=== PATIENT | male | born 1995 | race Hispanic/Latino ===

== ENCOUNTER 2018-11-19 19:03 | Emergency (ER) | payer OTHER, SELFPAY ==
[2018-11-19] MEDS ORDERED: METHYLPREDNISOLONE 125 MG INJ ONE (20:27)
[2018-11-19] MEDS ORDERED: ALBUTEROL 2.5 MG/3 ML NEB SOL ONE (20:27)
[2018-11-19] MEDS ORDERED: NA CHLORIDE 0.9% 1,000 ML ONE (20:27)
[2018-11-19 20:43] LABS: Absolute Lymphocytes (CBC) 1.9 K/uL (0.7-4.9); Absolute Monocytes 1.6 K/uL (0.1-1.3); Absolute Neutrophil 9.9 K/uL (1.8-8.0); Basophils % 0.4 % (0-1.3); Eosinophils % 2.8 % (0-4.4); Hematocrit 47.5 % (39.6-49.0); Lymphocytes % 13.5 % (15.3-44.8); MPV 8.6 fL (7.6-11.3); Monocytes % 11.4 % (3.3-12.3); RBC Red Blood Cell Count 5.36 M/uL (4.33-5.43)
[2018-11-19 20:59] LABS: Potassium 3.7 mmol/L (3.5-5.1)
--- NOTE | 2018-11-19 21:01 | RAD REPORT ---
EXAM DESCRIPTION: Kiki Single View11/19/2018 8:34 pm CLINICAL HISTORY: Cough COMPARISON: 2013 FINDINGS: The lungs appear clear of acute infiltrate. The heart is normal size IMPRESSION: No acute abnormalities displayed
--- NOTE | 2018-11-19 21:45 | EDPHYS ---
Physician Documentation [facility] Name: Andry Travis Jr Age: 23 yrs Sex: Male : 1995 Arrival Date: 11/19/2018 Time: 19:05 Bed 2 Private MD: None, None ED Physician Arnaldo Lemus HPI: 11/19 20:16 This 23 yrs old Male presents to ER via Ambulatory with complaints of Flu jr8 Symptoms. 20:16 Patient stated that for the past couple of days has had runny nose, sore throat, cough, jr8 wheezing, and body aches. Has been sweating a lot as well. Does not have inhaler at home and has history of asthma. Feels that his breathing is getting worse . Severity of symptoms: At their worst the symptoms were moderate in the emergency department the symptoms are unchanged. The patient has experienced similar episodes in the past, a few times. The patient has not recently seen a physician. Historical: - Allergies: 19:31 No Known Allergies; aj1 - Home Meds: 19:31 None [Active]; aj1 - PMHx: 19:31 Asthma; aj1 - Immunization history:: Flu vaccine is not up to date. - Social history:: Smoking status: Patient uses tobacco products, denies chronic smoking, but will smoke occasionally. - Ebola Screening: : Patient denies travel to an Ebola-affected area in the 21 days before illness onset. ROS: 20:16 Eyes: Negative for injury, pain, redness, and discharge, Neck: Negative for injury, jr8 pain, and swelling, Cardiovascular: Negative for chest pain, palpitations, and edema, Abdomen/GI: Negative for abdominal pain, nausea, vomiting, diarrhea, and constipation, Back: Negative for injury and pain, MS/Extremity: Negative for injury and deformity, Skin: Negative for injury, rash, and discoloration, Neuro: Negative for headache, weakness, numbness, tingling, and seizure. 20:16 Constitutional: Positive for body aches, chills. 20:16 ENT: Positive for rhinorrhea, sinus congestion, sore throat. 20:16 Respiratory: Positive for cough, shortness of breath, wheezing. Exam: 20:16 Eyes: Pupils equal round and reactive to light, extra-ocular motions intact. Lids and jr8 lashes normal. Conjunctiva and sclera are non-icteric and not injected. Cornea within normal limits. Periorbital areas with no swelling, redness, or edema. ENT: Nares patent. No nasal discharge, no septal abnormalities noted. Tympanic membranes are normal and external auditory canals are clear. Oropharynx with no redness, swelling, or masses, exudates, or evidence of obstruction, uvula midline. Mucous membranes moist. Neck: Trachea midline, no thyromegaly or masses palpated, and no cervical lymphadenopathy. Supple, full range of motion without nuchal rigidity, or vertebral point tenderness. No Meningismus. Cardiovascular: Regular rate and rhythm with a normal S1 and S2. No gallops, murmurs, or rubs. Normal PMI, no JVD. No pulse deficits. Abdomen/GI: Soft, non-tender, with normal bowel sounds. No distension or tympany. No guarding or rebound. No evidence of tenderness throughout. Back: No spinal tenderness. No costovertebral tenderness. Full range of motion. Skin: Warm, dry with normal turgor. Normal color with no rashes, no lesions, and no evidence of cellulitis. MS/ Extremity: Pulses equal, no cyanosis. Neurovascular intact. Full, normal range of motion. Neuro: Awake and alert, GCS 15, oriented to person, place, time, and situation. Cranial nerves II-XII grossly intact. Motor strength 5/5 in all extremities. Sensory grossly intact. Cerebellar exam normal. Normal gait. 20:16 Respiratory: the patient does not display signs of respiratory distress, Respirations: tachypnea, that is mild, Breath sounds: wheezing: expiratory that is moderate, is heard diffusely. Vital Signs: 19:31 BP 138 / 79; Pulse 128; Resp 24; Temp 99.1; Pulse Ox 93% on R/A; Height 5 ft. 5 in. aj1 (165.10 cm) (R); Pain 8/10; 21:02 BP 129 / 93; Pulse 118; Resp 20; Pulse Ox 100% on Nebulizer Mask; aa1 MDM: 19:33 Patient medically screened. jr8 21:43 Data reviewed: vital signs, nurses notes, lab test result(s), EKG, radiologic studies, jr8 plain films. Data interpreted: Pulse oximetry: on room air is 100 %. Interpretation: normal. Counseling: I had a detailed discussion with the patient and/or guardian regarding: the historical points, exam findings, and any diagnostic results supporting the discharge/admit diagnosis, lab results, radiology results, the need for outpatient follow up, a family practitioner, to return to the emergency department if symptoms worsen or persist or if there are any questions or concerns that arise at home. Response to treatment: the patient's symptoms have markedly improved after treatment, patient is well hydrated. 11/19 20:04 Order name: CBC with Diff; Complete Time: 21:04 11/19 20:04 Order name: Basic Metabolic Panel; Complete Time: 21:00 11/19 20:04 Order name: XRAY Chest (1 view); Complete Time: 21:02 11/19 20:04 Order name: Influenza Screen (a \T\ B); Complete Time: 20:57 11/19 20:04 Order name: EKG; Complete Time: 20:04 11/19 20:04 Order name: EKG - Nurse/Tech; Complete Time: 20:13 Administered Medications: 20:20 Drug: Albuterol 2.5 mg Route: Inhalation; ca1 20:34 Drug: NS 0.9% 1000 ml Route: IV; Rate: 1000 ml; Site: right antecubital; ca1 21:59 Follow up: Response: No adverse reaction; IV Status: Completed infusion ca1 20:35 Drug: SOLU-Medrol 125 mg Route: IVP; Site: right antecubital; ca1 21:59 Follow up: Response: No adverse reaction ca1 20:40 Drug: Albuterol 2.5 mg Route: Inhalation; ca1 21:02 Drug: Albuterol 2.5 mg Route: Inhalation; aa1 21:59 Follow up: Response: No adverse reaction ca1 Disposition: 22:23 Co-signature as Attending Physician, Arnaldo Lemus MD. pkl Disposition: 11/19/18 21:44 Discharged to Home. Impression: Viral infection, unspecified, Mild intermittent asthma with (acute) exacerbation. - Condition is Stable. - Discharge Instructions: Asthma, Adult, Viral Respiratory Infection. - Prescriptions for Prednisone 20 mg Oral Tablet - take 1 tablet by ORAL route once daily for 5 days; 5 tablet. Albuterol Sulfate 90 mcg/actuation - inhale 1-2 puff by INHALATION route every 4-6 hours; 1 Inhaler. Guaifenesin AC 10- 100 mg/5 mL Oral Liquid - take 10 milliliter by ORAL route every 4 hours As needed; 240 milliliter. - Medication Reconciliation Form, Thank You Letter, Antibiotic Education, Prescription Opioid Use form. - Follow up: Private Physician; When: 2 - 3 days; Reason: Recheck today's complaints, Continuance of care, Re-evaluation by your physician. - Problem is new. - Symptoms have improved. Signatures: Dispatcher [employer] EDFrancesca Lim RN RN aj1 Mine Daily RN RN aa1 Arnaldo Lemus MD MD pkl Too Epperson PA PA jr8 Cathie, Claudia RN RN ca1 Corrections: (The following items were deleted from the chart) 22:00 21:44 11/19/2018 21:44 Discharged to Home. Impression: Viral infection, unspecified; ca1 Mild intermittent asthma with (acute) exacerbation. Condition is Stable. Forms are Medication Reconciliation Form, Thank You Letter, Antibiotic Education, Prescription Opioid Use. Follow up: Private Physician; When: 2 - 3 days; Reason: Recheck today's complaints, Continuance of care, Re-evaluation by your physician. Problem is new. Symptoms have improved. jr8
--- NOTE | 2018-11-19 21:45 | ER ---
Nurse's Notes [facility] Name: Andry Travis Jr Age: 23 yrs Sex: Male : 1995 Arrival Date: 11/19/2018 Time: 19:05 Bed 2 Private MD: None, None Diagnosis: Viral infection, unspecified;Mild intermittent asthma with (acute) exacerbation Presentation: 11/19 19:28 Presenting complaint: Patient states: "My nose is running, my bones and aching really aj1 bad and my throat is hurting me. My asthma always acts up at this time of year and I don't have an inhaler". Transition of care: patient was not received from another setting of care. Onset of symptoms was November 18, 2018. Risk Assessment: Do you want to hurt yourself or someone else? Patient reports no desire to harm self or others. 19:28 Method Of Arrival: Ambulatory aj1 19:28 Acuity: ASHLEY 3 aj1 19:30 Initial Sepsis Screen: Does the patient meet any 2 criteria? RR > 20 per min. HR > 90 ca1 bpm. Does the patient have a suspected source of infection? Yes: Productive cough/pneumonia. Care prior to arrival: None. Triage Assessment: 19:31 General: Appears in no apparent distress. uncomfortable, Behavior is calm, cooperative, aj1 appropriate for age. Pain: Complains of pain in left aspect of posterior pharynx and right aspect of posterior pharynx Pain currently is 8 out of 10 on a pain scale. Neuro: Level of Consciousness is awake, alert, obeys commands. Cardiovascular: Patient's skin is warm and dry. Respiratory: Airway is patent Respiratory effort is even, unlabored, Respiratory pattern is regular, symmetrical. Historical: - Allergies: 19:31 No Known Allergies; aj1 - Home Meds: 19:31 None [Active]; aj1 - PMHx: 19:31 Asthma; aj1 - Immunization history:: Flu vaccine is not up to date. - Social history:: Smoking status: Patient uses tobacco products, denies chronic smoking, but will smoke occasionally. - Ebola Screening: : Patient denies travel to an Ebola-affected area in the 21 days before illness onset. Screenin:50 Abuse screen: Denies threats or abuse. Denies injuries from another. Nutritional ca1 screening: No deficits noted. Tuberculosis screening: No symptoms or risk factors identified. Fall Risk None identified. Assessment: 19:50 General: Appears in no apparent distress. comfortable, Behavior is calm, cooperative, ca1 appropriate for age. General: Reports feeling ill for 1-2 days. Pain: Denies pain. Neuro: Level of Consciousness is awake, alert, obeys commands, Oriented to person, place, time, situation. Cardiovascular: Heart tones S1 S2 Capillary refill < 3 seconds Patient's skin is warm and dry. Rhythm is sinus tachycardia. Respiratory: Reports shortness of breath since 3 days ago. cough that is productive, Airway is patent Trachea midline Respiratory effort is even, unlabored, Respiratory pattern is regular, symmetrical, Breath sounds with wheezes bilaterally. GI: Abdomen is flat, non-distended, Bowel sounds present X 4 quads. Abd is soft and non tender X 4 quads. : No signs and/or symptoms were reported regarding the genitourinary system. EENT: Reports nasal congestion. Derm: Skin is intact, is healthy with good turgor, Skin is pink, warm \\T\\ dry. Musculoskeletal: Circulation, motion, and sensation intact. Range of motion: intact in all extremities. 20:45 Reassessment: Patient appears in no apparent distress at this time. Patient and/or ca1 family updated on plan of care and expected duration. Pain level reassessed. Patient is alert, oriented x 3, equal unlabored respirations, skin warm/dry/pink. Patient states feeling better. 21:49 Reassessment: Patient appears in no apparent distress at this time. Patient and/or ca1 family updated on plan of care and expected duration. Pain level reassessed. Patient is alert, oriented x 3, equal unlabored respirations, skin warm/dry/pink. Vital Signs: 19:31 BP 138 / 79; Pulse 128; Resp 24; Temp 99.1; Pulse Ox 93% on R/A; Height 5 ft. 5 in. aj1 (165.10 cm) (R); Pain 8/10; 21:02 BP 129 / 93; Pulse 118; Resp 20; Pulse Ox 100% on Nebulizer Mask; aa1 ED Course: 19:05 Patient arrived in ED. sb2 19:06 None, None is Private Physician. sb2 19:31 Triage completed. aj1 19:31 Arm band placed on Patient placed in an exam room. aj1 19:33 Roszak, Too, PA is PHCP. jr8 19:33 Arnaldo Lemus MD is Attending Physician. jr8 19:40 Claudia Brand RN is Primary Nurse. ca1 19:50 Patient has correct armband on for positive identification. Bed in low position. Call ca1 light in reach. Side rails up X 1. Pulse ox on. NIBP on. Warm blanket given. 20:15 EKG done, by ED staff, reviewed by Too SANCHEZ. aa1 20:33 Inserted saline lock: 20 gauge in right antecubital area, using aseptic technique. oe Blood collected. 20:34 XRAY Chest (1 view) In Process Unspecified. EDMS 21:52 No provider procedures requiring assistance completed. IV discontinued, intact, ca1 bleeding controlled, No redness/swelling at site. Pressure dressing applied. 21:55 Claudia Brand RN is Primary Nurse. ca1 Administered Medications: 20:20 Drug: Albuterol 2.5 mg Route: Inhalation; ca1 20:34 Drug: NS 0.9% 1000 ml Route: IV; Rate: 1000 ml; Site: right antecubital; ca1 21:59 Follow up: Response: No adverse reaction; IV Status: Completed infusion ca1 20:35 Drug: SOLU-Medrol 125 mg Route: IVP; Site: right antecubital; ca1 21:59 Follow up: Response: No adverse reaction ca1 20:40 Drug: Albuterol 2.5 mg Route: Inhalation; ca1 21:02 Drug: Albuterol 2.5 mg Route: Inhalation; aa1 21:59 Follow up: Response: No adverse reaction ca1 Outcome: 21:44 Discharge ordered by . jr8 21:55 Discharged to home ambulatory, with family. ca1 21:55 Condition: stable ca1 21:55 Discharge instructions given to patient, Instructed on discharge instructions, follow up and referral plans. medication usage, Demonstrated understanding of instructions, follow-up care, medications, Prescriptions given X 3. 22:00 Patient left the ED. ca1 Signatures: Dispatcher [employer] EDMS Francesca Lin RN RN aj1 Mine Daily RN RN aa1 Too Epperson PA PA jr8 Titi Jones oe Paulette Barragan sb2 Claudia Brand RN RN ca1 Corrections: (The following items were deleted from the chart) 21:49 No provider procedures requiring assistance completed. ca1 ca1 21:49 IV discontinued, intact, bleeding controlled, No redness/swelling at site. ca1 Pressure dressing applied, ca1
[2018-11-19 22:13] VITALS: TEMP 99.1
[2018-11-19 22:14] VITALS: BP 129/93; O2SAT 100
--- NOTE | 2018-11-20 10:14 | EKG ---
Test Date: 2018-11-19 Test Time: 20:09:44 Clutch Rebuilder: GERMÁN MEASUREMENT RESULTS: Intervals: Rate: 118 MO: 122 QRSD: 76 QT: 310 QTc: 434 [place]: P: 69 MO: 122 QRS: 94 T: 43 INTERPRETIVE STATEMENTS: Sinus tachycardia Rightward axis Borderline ECG Compared to ECG 07/30/2014 02:53:28 Right-axis deviation now present Sinus rhythm no longer present Electronically Signed On 11-20-18 10:13:08 ENVIRONMENTAL SERVICES ATTENDANT by Kamari Machado
== END 2018-11-19 22:00 | disposition home or self-care (01) ==
LOC: ER 19:03
DX: B34.9 Viral infection, unspecified (principal); J45.21 Mild intermittent asthma with (acute) exacerbation; Z72.0 Tobacco use
CPT/HCPCS: 36415; 71045; 80048; 85025; 87804; 93005; 96361; 96374; 99285; J2930; J7030

== ENCOUNTER 2019-04-10 03:11 | Emergency (ER) | payer SELFPAY ==
[2019-04-10] MEDS ORDERED: LIDOCAINE VISCOUS 2% SOLN 15 ML UDC ONE (03:40)
--- NOTE | 2019-04-10 03:47 | ER ---
Nurse's Notes [facility] Name: Andry Travis Jr Age: 23 yrs Sex: Male : 1995 Arrival Date: 04/10/2019 Time: 03:14 Bed 6 Private MD: Diagnosis: Foreign body in right ear Presentation: 04/10 03:23 Presenting complaint: Patient states: there is something in his right ear probably a bb bug which got in there about 15 minutes ago. Transition of care: patient was not received from another setting of care. Onset of symptoms was April 10, 2019. Risk Assessment: Do you want to hurt yourself or someone else? Patient reports no desire to harm self or others. Initial Sepsis Screen: Does the patient meet any 2 criteria? No. Patient's initial sepsis screen is negative. Does the patient have a suspected source of infection? No. Patient's initial sepsis screen is negative. Care prior to arrival: None. 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 - Social history:: Smoking status: Patient uses tobacco products, denies chronic smoking, but will smoke occasionally. - Ebola Screening: : No symptoms or risks identified at this time. Screenin:25 Abuse screen: Denies threats or abuse. Denies injuries from another. Nutritional rr5 screening: No deficits noted. Tuberculosis screening: No symptoms or risk factors identified. Fall Risk None identified. Total Leija Fall Scale indicates No Risk (0-24 pts). Assessment: 03:25 General: Appears in no apparent distress. uncomfortable, Behavior is calm, cooperative, rr5 appropriate for age. Pain: Complains of pain in right ear Pain does not radiate. Pain currently is 10 out of 10 on a pain scale. Quality of pain is described as aching, Pain began suddenly, Is intermittent. Neuro: Level of Consciousness is awake, alert, obeys commands, Oriented to person, place, time, situation, Appropriate for age. 03:25 Cardiovascular: Capillary refill < 3 seconds Patient's skin is warm and dry. rr5 Respiratory: Airway is patent Respiratory effort is even, labored, Respiratory pattern is regular, symmetrical. GI: No signs and/or symptoms were reported involving the gastrointestinal system. : No signs and/or symptoms were reported regarding the genitourinary system. EENT: Ear canal w/ foreign body noted from right ear cockroach. 03:25 Derm: No signs and/or symptoms reported regarding the dermatologic system. rr5 Musculoskeletal: Capillary refill < 3 seconds, Range of motion: intact in all extremities. 03:50 Reassessment: viscous lidocaine rendered and flush it with warm water. removal of the rr5 foreign body (cockroach) in the right ear done by jaime. supervised by dr. cope. 03:59 Reassessment: Patient appears in no apparent distress at this time. Patient is alert, rr5 oriented x 3, equal unlabored respirations, skin warm/dry/pink. discharge instruction given and explained without complaints made. Patient states feeling better. Patient states symptoms have improved. Vital Signs: 03:25 BP 133 / 94; Pulse 90; Resp 16; Temp 97.9(O); Pulse Ox 100% on R/A; Weight 90.72 kg bb (R); Height 5 ft. 7 in. (170.18 cm) (R); Pain 8/10; 04:00 BP 120 / 80; Pulse 75; Resp 16; Temp 97.8; Pulse Ox 99% on R/A; rr5 03:25 Body Mass Index 31.32 (90.72 kg, 170.18 cm) bb ED Course: 03:14 Patient arrived in ED. es 03:24 Luis Browne, RN is Primary Nurse. rr5 03:24 Triage completed. bb 03:25 Arm band placed on Patient placed in an exam room, on a stretcher, on pulse oximetry. bb Family accompanied patient. 03:25 Patient has correct armband on for positive identification. rr5 03:26 Dario Cope MD is Attending Physician. tw4 04:00 Patient did not have IV access during this emergency room visit. rr5 04:00 No provider procedures requiring assistance completed. rr5 Administered Medications: 03:30 Drug: Viscous Lidocaine Liquid (4 %) 1 application Route: Mucous Membrane; bb 03:42 Follow up: Response: No adverse reaction bb Outcome: 03:47 Discharge ordered by . tw4 04:00 Discharged to home ambulatory, with family. rr5 04:00 Condition: stable 04:00 Discharge instructions given to patient, Instructed on discharge instructions, follow up and referral plans. medication usage, Demonstrated understanding of instructions, follow-up care, medications, Prescriptions given X 1. 04:06 Patient left the ED. rr5 Signatures: Sharmila Swift Brenda RN RN bb Dario Cope MD MD tw4 Luis Browne RN RN rr5
--- NOTE | 2019-04-10 04:07 | EDPHYS ---
Physician Documentation [facility] Name: Andry Travis Jr Age: 23 yrs Sex: Male : 1995 Arrival Date: 04/10/2019 Time: 03:14 Bed 6 Private MD: ED Physician Dario Sepulveda HPI: 04/10 03:56 This 23 yrs old Male presents to ER via Ambulatory with complaints of Foreign tw4 Body In Ear. 03:56 The complaints affect the right ear. Onset: The symptoms/episode began/occurred today. tw4 Modifying factors: The symptoms are alleviated by nothing, the symptoms are aggravated by nothing. Associated signs and symptoms: The patient has no apparent associated signs or symptoms. Severity of symptoms: At their worst the symptoms were moderate in the emergency department the symptoms are unchanged. The patient has not experienced similar symptoms in the past. 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 - Social history:: Smoking status: Patient uses tobacco products, denies chronic smoking, but will smoke occasionally. - Ebola Screening: : No symptoms or risks identified at this time. ROS: 03:56 Constitutional: Negative for fever, chills, and weight loss, Eyes: Negative for injury, tw4 pain, redness, and discharge, Cardiovascular: Negative for chest pain, palpitations, and edema, Respiratory: Negative for shortness of breath, cough, wheezing, and pleuritic chest pain, Abdomen/GI: Negative for abdominal pain, nausea, vomiting, diarrhea, and constipation, Back: Negative for injury and pain. 03:56 ENT: Positive for ear pain, foreign body sensation. Exam: 03:56 Constitutional: This is a well developed, well nourished patient who is awake, alert, tw4 and in no acute distress. Head/Face: Normocephalic, atraumatic. 03:56 ENT: Ear canal(s): foreign body, an insect. Vital Signs: 03:25 BP 133 / 94; Pulse 90; Resp 16; Temp 97.9(O); Pulse Ox 100% on R/A; Weight 90.72 kg bb (R); Height 5 ft. 7 in. (170.18 cm) (R); Pain 8/10; 04:00 BP 120 / 80; Pulse 75; Resp 16; Temp 97.8; Pulse Ox 99% on R/A; rr5 03:25 Body Mass Index 31.32 (90.72 kg, 170.18 cm) bb Procedures: 03:56 Foreign Body Removal: an insect, from the right ear canal, by normal saline irrigation, tw4 The patient tolerated the removal well, insect removed. MDM: 03:26 Patient medically screened. tw4 03:56 Data reviewed: vital signs, nurses notes. Counseling: I had a detailed discussion with tw4 the patient and/or guardian regarding: the historical points, exam findings, and any diagnostic results supporting the discharge/admit diagnosis. Special discussion: I discussed with the patient/guardian in detail that at this point there is no indication for admission to the hospital. It is understood, however, that if the symptoms persist or worsen the patient needs to return immediately for re-evaluation. Administered Medications: 03:30 Drug: Viscous Lidocaine Liquid (4 %) 1 application Route: Mucous Membrane; bb 03:42 Follow up: Response: No adverse reaction bb Disposition: 04/10/19 03:47 Discharged to Home. Impression: Foreign body in right ear. - Condition is Stable. - Discharge Instructions: Ear Foreign Body. - Prescriptions for Cortisporin- TC 3.3-3-10-0.5 mg/mL Otic Suspension - instill 4 drop by OTIC route every 6 hours; 1 bottle. - Medication Reconciliation Form, Thank You Letter, Antibiotic Education, Prescription Opioid Use form. - Follow up: Private Physician; When: Upon discharge from the Emergency Department; Reason: If symptoms return, Recheck today's complaints, Continuance of care. - Problem is new. - Symptoms have improved. Signatures: Ying Montez RN RN bb Dario Sepulveda MD MD tw4 Luis Browne RN RN rr5 Corrections: (The following items were deleted from the chart) 04:06 03:47 04/10/2019 03:47 Discharged to Home. Impression: Foreign body in right ear. rr5 Condition is Stable. Forms are Medication Reconciliation Form, Thank You Letter, Antibiotic Education, Prescription Opioid Use. Follow up: Private Physician; When: Upon discharge from the Emergency Department; Reason: If symptoms return, Recheck today's complaints, Continuance of care. Problem is new. Symptoms have improved. tw4
[2019-04-10 04:49] VITALS: BP 120/80; TEMP 97.8; O2SAT 99
== END 2019-04-10 04:06 | disposition home or self-care (01) ==
LOC: ER 03:11
PROC: 09C0XZZ Extirpation of Matter from Right External Ear, External Approach (ICD-10-PCS; principal; 2019-04-10)
DX: T16.1XXA Foreign body in right ear, initial encounter (principal)
CPT/HCPCS: 99283